=== PATIENT | male | born 1980 | race Caucasian/White ===

== ENCOUNTER → 2017-08-13 | Emergency (ER) | payer OTHER ==
[~2017-08-13] VITALS: Ht 157.5 cm; Wt 70.3 kg
[~2017-08-13] MED LIST: OSEL75CA PO; PANADOL MAXIMU500 MG PO; TUSSI-PRES LIQ120 ML PO; ZYRTEC10 MG PO
== END | disposition home or self-care (01) ==
LOC: ER 13:15
DX: M54.5 Low back pain (principal)